=== PATIENT | female | born 1965 ===

== ENCOUNTER 2022-12-28 07:00 | Inpatient (IN) | payer OTHER ==
[~2022-12-28] VITALS: Ht 157.5 cm; Wt 83.9 kg
[2022-12-28] MEDS ORDERED: ZOLOFT100 MG PO (08:49)
[2022-12-28] MEDS ORDERED: LOVASTA PO (08:49)
[2022-12-28] MEDS ORDERED: AVAPRO150 MG PO (08:49)
[2022-12-28] MEDS ORDERED: CYMBALTA30 MG PO (08:50)
[2022-12-28] MEDS ORDERED: PROTONIX40 M1 PO (08:50)
[2022-12-28] MEDS ORDERED: SINGULAIR10 MG PO (08:51)
[2022-12-28] MEDS ORDERED: CATAFLAN PO (08:51)
[2022-12-28] MEDS ORDERED: GABAPEN PO (08:51)
[2022-12-28] MEDS ORDERED: [UNRECOGNIZED DRUG - OTHER] (08:52)
[2022-12-28] MEDS ORDERED: SYMBICORT 16010.2 GM IH (08:52)
[2023-01-03 12:46] LABS: HEMATOCRIT 38.1 % (36.0-45.00); HEMOGLOBIN 12.4 g/dL (12.0-15.00); RED BLOOD COUNT 4.49 M/uL (4.00-6.00)
[2023-01-04 05:06] LABS: HEMATOCRIT 34.9 % (36.0-45.00); MEAN CELL VOLUME 83.8 fL (80.00-100.00); MEAN CORPUSCULAR HGB CONC 32.5 g/dl (32.0-36.0); PLATELET COUNT 256 K/uL (150-450); RED BLOOD COUNT 4.17 M/uL (4.00-6.00); RED CELL DISTRIBUTION WIDTH 13.8 % (11.5-14.5)
[2023-01-04 05:13] LABS: HEMOGLOBIN 11.4 g/dL (12.0-15.00); MEAN CORPUSCULAR HEMOGLOBIN 27.3 pg (27.00-32.0)
[2023-01-04] MEDS ORDERED: LOVASTATIN20 MG (09:28)
[2023-01-04] MEDS ORDERED: QUETIAPINE FUMA50 MG (09:28)
[2023-01-04] MEDS ORDERED: GABAPENTIN100 M2 (09:28)
[2023-01-04] MEDS ORDERED: MAXIMUM D3325 MCG (09:28)
[2023-01-04] MEDS ORDERED: DICLOFENAC POTA50 MG (09:29)
[2023-01-05] MEDS ORDERED: XARELTO10 MG PO (07:55)
[2023-01-05] MEDS ORDERED: BACTRIM DS TAB1 EACH PO (07:55)
[2023-01-05] MEDS ORDERED: INTEGRA PLUS C1 EACH PO (07:55)
[2023-01-05] MEDS ORDERED: TRAMADOL HCL50 MG PO (07:55)
[2023-01-05 09:41] LABS: HEMATOCRIT 32.5 % (36.0-45.00); HEMOGLOBIN 10.8 g/dL (12.0-15.00); MEAN CORPUSCULAR HEMOGLOBIN 27.6 pg (27.00-32.0); MEAN CORPUSCULAR HGB CONC 33.2 g/dl (32.0-36.0); PLATELET COUNT 235 K/uL (150-450); RED BLOOD COUNT 3.91 M/uL (4.00-6.00); RED CELL DISTRIBUTION WIDTH 14.1 % (11.5-14.5)
== END 2023-01-05 18:26 | DRG 470 ==
LOC: O/R 01-03 05:30 → SURG 01-03 05:30
PROVIDERS: ADMIT Orthopaedic Surgery Sports Medicine; ATTEND Orthopaedic Surgery Sports Medicine
PROC: 0SRC0J9 Replacement of Right Knee Joint with Synthetic Substitute, Cemented, Open Approach (ICD-10-PCS; principal; 2023-01-03 10:30)
DX: M17.11 Unilateral primary osteoarthritis, right knee (principal)